=== PATIENT | male | born 1955 | race Caucasian/White ===

== ENCOUNTER 2023-10-16 02:02 | Emergency (ER) | payer SELFPAY ==
[~2023-10-16] VITALS: Ht 177.8 cm; Wt 81.6 kg
[2023-10-16] MEDS ORDERED: IBUPROFEN 400 MG TABLET ONE (03:21)
[2023-10-16] MEDS: IBUPROFEN 400 MG TABLET PO ONE (03:43)
[2023-10-16 04:57] VITALS: BP 134/81; TEMP 98; O2SAT 100
== END 2023-10-16 04:58 | disposition home or self-care (01) ==
LOC: ER 02:12
DX: S23.3XXA Sprain of ligaments of thoracic spine, initial encounter (principal); S63.602A Unspecified sprain of left thumb, initial encounter; S50.02XA Contusion of left elbow, initial encounter; R07.89 Other chest pain; Z60.2 Problems related to living alone; V43.52XA Car driver injured in collision with other type car in traffic accident, initial encounter; Y93.89 Activity, other specified; Y92.488 Other paved roadways as the place of occurrence of the external cause; Y99.8 Other external cause status
CPT/HCPCS: 71045-TC; 72070-TC; 73080-TC; 73130-TC